=== PATIENT | female | born 1990 | race Caucasian/White ===

== ENCOUNTER 2016-06-08 11:39 | Emergency (ER) | payer MEDICAID, OTHER ==
[~2016-06-08] VITALS: Ht 157.5 cm; Wt 43.1 kg
[2016-06-08 12:18] VITALS: BP 134/73
--- NOTE | 2016-06-08 14:41 | NUR ---
PATIENT IS A 26 YO FEMALE BIB SELF FOR ABDOMINAL PAIN SHE STATES SHE HAS HAD AN IUD IN PLACE AND IT HAS SHIFTED TO HER PELVIS.
--- NOTE | 2016-06-08 15:01 | NUR ---
PATIENT TEST RESULTS REVIEWED BY DISPOSITIION PENDING.
[2016-06-08 15:08] VITALS: BP 134/73
== END 2016-06-08 15:08 | disposition home or self-care (01) ==
LOC: MED 11:39
DX: N39.0 Urinary tract infection, site not specified (principal); Z97.5 Presence of (intrauterine) contraceptive device